=== PATIENT | female | born 1950 | race Caucasian/White ===

== ENCOUNTER 2016-10-14 09:14 | Inpatient (IN) | payer OTHER ==
[~2016-10-14] VITALS: Ht 162.6 cm; Wt 59.7 kg
[2016-10-24] MEDS ORDERED: ACIDOPHILUS1 EAC4 PO (16:48)
[2016-10-24] MEDS ORDERED: ASCOMP WITH CO1 EACH PO (16:48)
[2016-10-24] MEDS ORDERED: CALCIUM + D3 E1 EACH PO (16:49)
[2016-10-24] MEDS ORDERED: ASPIRIN325 MG PO (16:49)
[2016-10-24] MEDS ORDERED: VITAMIN E400 UNIT PO (16:49)
[2016-10-24] MEDS ORDERED: DIAZEPAM5 MG PO (16:50)
[2016-10-24] MEDS ORDERED: VITAMIN D5000 UNI1 PO (16:50)
[2016-10-24] MEDS ORDERED: FLONASE ALLERG9.9 ML BOTH NARES (16:51)
[2016-10-24] MEDS ORDERED: HYDROCORTISONE5 MG PO ×2 (16:51→16:52)
[2016-10-24] MEDS ORDERED: TOPROL XL25 MG PO (16:53)
[2016-10-24] MEDS ORDERED: PROTONIX40 MG PO (16:53)
[2016-10-24] MEDS ORDERED: NITROSTAT0.4 MG SL (16:53)
[2016-10-24] MEDS ORDERED: VERAPAMIL HCL360 MG PO (16:54)
[2016-10-24] MEDS ORDERED: PRAVASTATIN SOD20 MG PO (16:54)
[2016-10-24] MEDS ORDERED: SPIRONOLACTONE50 MG PO (16:54)
[2016-10-24] MEDS ORDERED: PROAIR HFA8.5 GM IH (16:54)
[2016-10-25] MEDS ORDERED: HYDRALAZINE HCL25 MG PO (12:09)
[2016-10-25] MEDS ORDERED: VALIUM2 MG PO (12:10)
[2016-10-31] MEDS ORDERED: ASPIR-LOW81 MG PO (09:42)
[2016-10-31] MEDS ORDERED: BRILINTA90 MG PO (09:42)
[2016-10-31] MEDS ORDERED: PRAVASTATIN SOD40 MG PO (09:42)
[2017-01-20] MEDS ORDERED: PRAVACHOL20 MG PO (14:01)
[2017-01-20] MEDS ORDERED: ASPIRIN325 MG PO (14:03)
[2017-01-20] MEDS ORDERED: CORTEF5 M1 PO (14:04)
[2017-01-22 06:21] VITALS: BP 142/63
[2017-01-22 06:26] VITALS: BP 144/64
[2017-01-22 06:36] LABS: HEMATOCRIT 42.6 % (36.0-46.0); MCH 31.1 PG (29.0-34.0); MCHC 31.9 G/DL (30.0-36.0); MCV 97.5 FL (83-99); MEAN PLAT.VOLUME 10.6 uM^3 (9.5-12.4); PLATELET COUNT 186 K/uL (156-360); RBC DIS.WIDTH-CV 13.4 % (11.8-14.6); RBC DIS.WIDTH-SD 48.6 % (39-53); RED BLOOD COUNT 4.37 M/uL (3.80-5.20)
[2017-01-22 07:06] LABS: ANION GAP 11 MEQ/L (2-14); CHLORIDE 107 MEQ/L (99-109); GFR ESTIMATE (CALCULATED) 59 mL/min/; GLUCOSE 95 mg/dL (70-99); POTASSIUM 3.9 MEQ/L (3.7-5.4); SAMPLE HEMOLYSIS CHECK 0; SAMPLE ICTERIC CHECK 0; SAMPLE LIPEMIA CHECK 0; SODIUM 141 MEQ/L (136-147); UREA NITROGEN (BUN) 18 mg/dL (9-23)
[2017-01-22] MEDS ORDERED: HYDROCODON-ACE1 EAC7 PO (09:26)
[2017-01-22 17:52] VITALS: BP 168/73
[2017-01-22 19:42] VITALS: BP 168/80
[2017-01-22 23:50] VITALS: BP 155/76
[2017-01-23 04:53] VITALS: BP 166/76
[2017-01-23 07:21] VITALS: BP 168/74
== END 2017-01-23 10:14 | disposition home or self-care (01) | DRG 39 ==
LOC: 2SOUTH 09:14 → ENRESERV 01-22 05:34 → 2SOUTH 01-22 05:40 → ENRESERV 01-22 12:20 → 2SOUTH 01-22 13:41 → ENRESERV 01-22 14:52 → 4EAST 01-22 17:36
PROVIDERS: Surgery
PROC: 03UL0JZ Supplement Left Internal Carotid Artery with Synthetic Substitute, Open Approach (ICD-10-PCS; principal; 2017-01-22)
PROC: 03CL0ZZ Extirpation of Matter from Left Internal Carotid Artery, Open Approach (ICD-10-PCS; principal; 2017-01-22)
DX: I65.22 Occlusion and stenosis of left carotid artery (principal); K27.9 Peptic ulcer, site unspecified, unspecified as acute or chronic, without hemorrhage or perforation; I10 Essential (primary) hypertension; J44.9 Chronic obstructive pulmonary disease, unspecified; F17.200 Nicotine dependence, unspecified, uncomplicated; E78.00 Pure hypercholesterolemia, unspecified; E78.5 Hyperlipidemia, unspecified; I73.9 Peripheral vascular disease, unspecified; Z79.82 Long term (current) use of aspirin; Z85.828 Personal history of other malignant neoplasm of skin; Z87.11 Personal history of peptic ulcer disease
CPT/HCPCS: 80048; 85027; 93005; C1768; J0690; J1644; J2250; J2405; J2720; J2795; J3010; J7120

== ENCOUNTER 2016-10-30 11:21 | Day surgery (SDC) | payer OTHER ==
[~2016-10-30] VITALS: Ht 162.6 cm; Wt 57.3 kg
[~2016-10-30 11:21] MED LIST: ACIDOPHILUS1 EAC4 PO; ASCOMP WITH CO1 EACH PO; ASPIRIN325 MG PO; CALCIUM500 M4 PO; DIAZEPAM5 MG PO; FLONASE ALLERG9.9 ML BOTH NARES; HYDRALAZINE HCL25 MG PO; HYDROCORTISONE5 MG PO; METOPROLOL SUCC25 MG PO; NITROSTAT0.4 MG SL; PRAVASTATIN SOD20 MG PO; PROAIR HFA8.5 GM IH; PROTONIX40 MG PO; SPIRONOLACTONE50 MG PO; VALIUM2 MG PO; VERAPAMIL HCL360 MG PO; VITAMIN D5000 UNI1 PO; VITAMIN E400 UNIT PO
[2016-10-30 17:51] VITALS: BP 184/81
[2016-10-30 19:14] VITALS: BP 178/83
[2016-10-30 23:02] VITALS: BP 167/78
[2016-10-31 03:00] VITALS: BP 158/66
[2016-10-31 05:31] LABS: EOSINOPHIL (%) 2.2 % (0-5); EOSINOPHIL COUNT 0.1 K/uL (0-0.3); HEMATOCRIT 38.4 % (36.0-46.0); IMMATURE GRANULOCYTE (%) 0.2 % (0.0-0.7); INSTRUMENT ABS NEUTROPHIL CT 3.4 K/uL; LYMPHOCYTE COUNT 1.9 K/uL (1.0-2.8); MCH 32.4 PG (29.0-34.0); MCHC 33.6 G/DL (30.0-36.0); MCV 96.5 FL (83-99); MEAN PLAT.VOLUME 11.1 uM^3 (9.5-12.4); MONOCYTE (%) 7.6 % (3-12); MONOCYTE COUNT 0.5 K/uL (0-0.8); NEUTROPHIL (%) 58.1 % (45-76); NEUTROPHIL COUNT 3.4 K/uL (1.8-6.4); PLATELET COUNT 159 K/uL (156-360); RBC DIS.WIDTH-CV 14.1 % (11.8-14.6); RBC DIS.WIDTH-SD 50.6 % (39-53); RED BLOOD COUNT 3.98 M/uL (3.80-5.20); WHITE BLOOD COUNT 5.9 K/uL (4.1-10.2)
[2016-10-31 05:54] LABS: ANION GAP 10 MEQ/L (2-14); CHLORIDE 108 MEQ/L (99-109); GFR ESTIMATE (CALCULATED) > 59 mL/min/; GLUCOSE 94 mg/dL (70-99); POTASSIUM 3.5 MEQ/L (3.7-5.4); SAMPLE HEMOLYSIS CHECK 0; SAMPLE ICTERIC CHECK 0; SAMPLE LIPEMIA CHECK 0; SODIUM 141 MEQ/L (136-147); UREA NITROGEN (BUN) 13 mg/dL (9-23)
[2016-10-31 07:16] VITALS: BP 163/72
[2016-10-31] MEDS ORDERED: BRILINTA90 MG PO (09:42)
[2016-10-31] MEDS ORDERED: PRAVASTATIN SOD40 MG PO (09:42)
[2016-10-31] MEDS ORDERED: ASPIR-LOW81 MG PO (09:42)
== END 2016-10-31 10:44 | disposition home or self-care (01) ==
LOC: CATH 11:21 → 4EAST 15:19 → 2SOUTH 15:19 → 4EAST 17:31
PROVIDERS: Internal Medicine Cardiovascular Disease
DX: I25.10 Atherosclerotic heart disease of native coronary artery without angina pectoris (principal); T82.858A Stenosis of other vascular prosthetic devices, implants and grafts, initial encounter; I25.2 Old myocardial infarction; I10 Essential (primary) hypertension; I73.9 Peripheral vascular disease, unspecified; E78.5 Hyperlipidemia, unspecified; Z95.820 Peripheral vascular angioplasty status with implants and grafts; E27.1 Primary adrenocortical insufficiency; F17.200 Nicotine dependence, unspecified, uncomplicated; Z88.8 Allergy status to other drugs, medicaments and biological substances; Y83.1 Surgical operation with implant of artificial internal device as the cause of abnormal reaction of the patient, or of later complication, without mention of misadventure at the time of the procedure
CPT/HCPCS: 80048; 85025; 85347; 93005; C1725; C1769; C1874; C1887; G0378; J0461; J1200; J1644; J2250; J3010; J3246

== ENCOUNTER 2017-07-15 01:10 | Inpatient (IN) | payer OTHER ==
[~2017-07-15] VITALS: Ht 157.5 cm; Wt 54.6 kg
[~2017-07-15 01:10] MED LIST changes: +ASPIR-LOW81 MG PO; +BRILINTA90 MG PO; -CALCIUM500 M4 PO; +CORTEF5 M1 PO; +HYDROCODON-ACE1 EAC7 PO; -METOPROLOL SUCC25 MG PO; +OYSCO-500500 MG PO; +PRAVACHOL20 MG PO; +PRAVASTATIN SOD40 MG PO; -PROAIR HFA8.5 GM IH; +PROVENTIL HFA6.7 GM IH; +TOPROL XL25 MG PO
[2017-07-15 01:43] LABS: HEMATOCRIT 47.3 % (36.0-46.0); HEMOGLOBIN 15.5 G/DL (11.9-15.5); MCH 31.8 PG (29.0-34.0); MCHC 32.8 G/DL (30.0-36.0); MCV 97.1 FL (83-99); RBC DIS.WIDTH-SD 50.8 % (39-53); RED BLOOD COUNT 4.87 M/uL (3.80-5.20); WHITE BLOOD COUNT 11.7 K/uL (4.1-10.2)
[2017-07-15 01:49] LABS: INTER. NORMALIZED RATIO 1.2
[2017-07-15 01:51] LABS: PTT 33.2 SEC (25-37)
[2017-07-15 01:54] LABS: CHLORIDE 97 mEq/L (99-109); POTASSIUM 4.1 mEq/L (3.7-5.4); SODIUM 139 mEq/L (136-147)
[2017-07-15 01:56] LABS: GLUCOSE 114 mg/dL (70-99)
[2017-07-15 01:59] LABS: CREATININE 0.8 mg/dL (0.6-1.3); GFR ESTIMATE (CALCULATED) > 59 mL/min/
[2017-07-15 02:00] LABS: UREA NITROGEN (BUN) 11 mg/dL (9-23)
[2017-07-15 02:04] LABS: TROP-I INTERPRETATION NEGATIVE; TROPONIN-I 0.09 ng/mL (0.0-0.30)
[2017-07-15 02:28] LABS: PLAT.SUFFICIENCY ADEQUATE; PLATELET COUNT 218 K/uL (156-360)
[2017-07-15 06:48] LABS: TROP-I INTERPRETATION NEGATIVE; TROPONIN-I 0.09 ng/mL (0.0-0.30)
[2017-07-15 07:40] VITALS: BP 152/83
[2017-07-15 11:34] VITALS: BP 153/82
[2017-07-15 16:25] VITALS: BP 151/81
[2017-07-15] MEDS ORDERED: COREG6.25 M1 PO (16:48)
[2017-07-15] MEDS ORDERED: FIORICET,ESG1 TABLET PO (16:55)
[2017-07-15] MEDS ORDERED: FLOVENT 22120 INHALA IH (16:56)
[2017-07-15] MEDS ORDERED: LASIX40 MG PO (16:57)
[2017-07-15] MEDS ORDERED: TESSALON PERLE100 MG PO (16:58)
[2017-07-15] MEDS ORDERED: REGLAN5 MG PO (16:59)
[2017-07-15 20:00] VITALS: BP 188/87
[2017-07-16] VITALS (11 sets, daily range): BP systolic 124–182; BP diastolic 58–83
[2017-07-16 04:51] LABS: BASOPHIL (%) 0.4 % (0-1); EOSINOPHIL (%) 0.3 % (0-5); HEMATOCRIT 48.3 % (36.0-46.0); HEMOGLOBIN 15.5 G/DL (11.9-15.5); IMMATURE GRANULOCYTE (%) 0.4 % (0.0-0.7); LYMPHOCYTE COUNT 1.2 K/uL (1.0-2.8); MCH 30.6 PG (29.0-34.0); MCHC 32.1 G/DL (30.0-36.0); MCV 95.3 FL (83-99); MONOCYTE (%) 3.1 % (3-12); MONOCYTE COUNT 0.2 K/uL (0-0.8); NEUTROPHIL (%) 79.8 % (45-76); NEUTROPHIL COUNT 5.9 K/uL (1.8-6.4); PLATELET COUNT 234 K/uL (156-360); RBC DIS.WIDTH-CV 13.5 % (11.8-14.6); RBC DIS.WIDTH-SD 48.1 % (39-53); RED BLOOD COUNT 5.07 M/uL (3.80-5.20); WHITE BLOOD COUNT 7.4 K/uL (4.1-10.2)
[2017-07-16 05:27] LABS: ALBUMIN 3.5 G/DL (3.2-4.8); ALKALINE PHOSPHATASE 86 IU/L (3-129); ALT (GPT) 13 IU/L (3-49); AST (GOT) 15 IU/L (2-34); CHLORIDE 95 MEQ/L (99-109); GFR ESTIMATE (CALCULATED) 59 mL/min/; POTASSIUM 3.6 MEQ/L (3.7-5.4); SODIUM 137 MEQ/L (136-147); TOTAL BILIRUBIN 0.4 MG/DL (0.0-1.0); TOTAL PROTEIN 6.8 G/DL (6.4-8.3); UREA NITROGEN (BUN) 19 mg/dL (9-23)
[2017-07-16 05:28] LABS: GLUCOSE 183 mg/dL (70-99)
[2017-07-17 04:16] VITALS: BP 152/70
[2017-07-17 05:31] LABS: BASOPHIL (%) 0.5 % (0-1); EOSINOPHIL (%) 1.7 % (0-5); EOSINOPHIL COUNT 0.1 K/uL (0-0.3); HEMATOCRIT 39.4 % (36.0-46.0); IMMATURE GRANULOCYTE (%) 0.2 % (0.0-0.7); LYMPHOCYTE (%) 32.6 % (15-42); LYMPHOCYTE COUNT 2.8 K/uL (1.0-2.8); MCH 31.5 PG (29.0-34.0); MCHC 32.2 G/DL (30.0-36.0); MCV 97.8 FL (83-99); MONOCYTE (%) 7.2 % (3-12); MONOCYTE COUNT 0.6 K/uL (0-0.8); NEUTROPHIL (%) 57.8 % (45-76); NEUTROPHIL COUNT 4.9 K/uL (1.8-6.4); PLATELET COUNT 204 K/uL (156-360); RBC DIS.WIDTH-CV 13.7 % (11.8-14.6); RBC DIS.WIDTH-SD 49.8 % (39-53); WHITE BLOOD COUNT 8.4 K/uL (4.1-10.2)
[2017-07-17 05:34] LABS: HEMOGLOBIN 12.7 G/DL (11.9-15.5); RED BLOOD COUNT 4.03 M/uL (3.80-5.20)
[2017-07-17 05:49] LABS: ALKALINE PHOSPHATASE 66 IU/L (3-129); ALT (GPT) 11 IU/L (3-49); AST (GOT) 13 IU/L (2-34); CHLORIDE 104 MEQ/L (99-109); CREATININE 0.9 MG/DL (0.6-1.3); GFR ESTIMATE (CALCULATED) > 59 mL/min/; GLUCOSE 107 mg/dL (70-99); POTASSIUM 3.4 MEQ/L (3.7-5.4); SODIUM 141 MEQ/L (136-147); TOTAL BILIRUBIN 0.3 MG/DL (0.0-1.0); TOTAL PROTEIN 5.1 G/DL (6.4-8.3); UREA NITROGEN (BUN) 17 mg/dL (9-23)
[2017-07-17 08:00] VITALS: BP 167/85
[2017-07-17] MEDS ORDERED: NICOTINE PATCH1 EAC1 TD (08:25)
[2017-07-17] MEDS ORDERED: BUMETANIDE1 MG PO (08:26)
== END 2017-07-17 09:05 | disposition home or self-care (01) | DRG 286 ==
LOC: EME 01:10 → 4EAST 03:47 → EDOF 03:47 → ENRESERV 03:49 → 4EAST 07:08
PROVIDERS: Emergency Medicine; Hospitalist
DX: I11.0 Hypertensive heart disease with heart failure (principal); J96.01 Acute respiratory failure with hypoxia; J44.1 Chronic obstructive pulmonary disease with (acute) exacerbation; I50.21 Acute systolic (congestive) heart failure; E78.5 Hyperlipidemia, unspecified; F17.200 Nicotine dependence, unspecified, uncomplicated; I25.10 Atherosclerotic heart disease of native coronary artery without angina pectoris; I25.2 Old myocardial infarction; I25.5 Ischemic cardiomyopathy; I73.9 Peripheral vascular disease, unspecified; E27.1 Primary adrenocortical insufficiency; Z79.82 Long term (current) use of aspirin; Z87.442 Personal history of urinary calculi; I27.20 Pulmonary hypertension, unspecified; I08.1 Rheumatic disorders of both mitral and tricuspid valves; Z95.5 Presence of coronary angioplasty implant and graft
CPT/HCPCS: 71046; 80048; 80053; 83880; 84484; 85025; 85027; 85610; 85730; 93005; 93306; 99202; 99281; 99285; C1769; C1887; C1894; J0461; J1644; J1720; J1940; J2250; J3010; J7040